=== PATIENT | female | born 1980 | race Caucasian/White ===

== ENCOUNTER 2025-03-31 06:37 | Emergency (ER) | payer MEDICAID ==
[~2025-03-31] VITALS: Ht 154.9 cm; Wt 53.5 kg
[2025-03-31] MEDS ORDERED: ALPR1TAB7 PO (06:59)
[2025-03-31] MEDS ORDERED: LORAZEPAM 0.5 MG TABLET ONE ×2 (07:56→08:45)
[2025-03-31] MEDS: LORAZEPAM 0.5 MG TABLET PO ONE ×2 (07:58→08:46)
[2025-03-31] MEDS ORDERED: LORA-259 PO (08:22)
[2025-03-31 09:24] VITALS: BP 135/100
[2025-03-31 09:29] VITALS: BP 135/100; TEMP 97.8; O2SAT 98
== END 2025-03-31 09:29 | disposition home or self-care (01) ==
LOC: ER 06:57
DX: F41.0 Panic disorder [episodic paroxysmal anxiety] (principal); F17.290 Nicotine dependence, other tobacco product, uncomplicated; Z60.2 Problems related to living alone
CPT/HCPCS: A4606; A4663